=== PATIENT | female | born 1990 | race Hispanic/Latino ===

== ENCOUNTER 2017-09-06 20:31 | Emergency (ER) | payer BC ==
--- NOTE | 2017-09-06 21:06 | ED PDOC ---
Arrival/HPI - General Historian: Patient <Jo Ann Quiroz - Last Filed: 09/06/17 22:01> <Alexis Hamilton - Last Filed: 09/06/17 22:17> - General Chief Complaint: Lower Extremity Problem/Injury Time Seen by Provider: 09/06/17 20:53 - History of Present Illness Narrative History of Present Illness (Text): 09/06/17 20:55 27yr old female presents today with left great toe pain. pt states that 3 days ago her brother in law dropped a heavy tent on her great toe. pt taking motrin for pain with relief. pt c/o pain with ambulation. pt denies numbness, weakness , tingling in the extremity. no lacerations, abrasions. pt refusing medications for pain. no other complaints. (Jo Ann Quiroz) Past Medical History - Provider Review Nursing Documentation Reviewed: Yes - Travel History Have you recently traveled outside [place] w/in the past 3 mons?: No - Tetanus Immunization Tetanus Immunization: Unknown - Psychiatric Hx Psychophysiologic Disorder: No Hx Substance Use: No <Jo Ann Quiroz - Last Filed: 09/06/17 22:01> Family/Social History - Physician Review Nursing Documentation Reviewed: Yes Family/Social History: Unknown Family HX Smoking Status: Never Smoked Hx Alcohol Use: Yes Frequency of alcohol use: Socially Hx Substance Use: No <Jo Ann Quiroz - Last Filed: 09/06/17 22:01> Allergies/Home Meds <Jo Ann Quiroz - Last Filed: 09/06/17 22:01> <Alexis Hamilton - Last Filed: 09/06/17 22:17> Allergies/Adverse Reactions: Allergies No Known Allergies Allergy (Verified 09/06/17 20:33) Home Medications: Home Meds Medication Instructions Recorded Confirmed No Known Home Med 09/06/17 09/06/17 Review of Systems - Review of Systems Constitutional: absent: Fatigue, Fevers Respiratory: absent: SOB, Cough Cardiovascular: absent: Chest Pain, Palpitations Gastrointestinal: absent: Abdominal Pain, Nausea, Vomiting Musculoskeletal: Arthralgias (left great toe pain). absent: Back Pain, Neck Pain Neurological: absent: Headache, Dizziness Psychiatric: absent: Anxiety, Depression <Jo Ann Quiroz - Last Filed: 09/06/17 22:01> Physical Exam Vital Signs Reviewed: Yes Temperature: Afebrile Blood Pressure: Normal Pulse: Regular Respiratory Rate: Normal Appearance: Positive for: Well-Appearing, Non-Toxic, Comfortable Pain Distress: None Mental Status: Positive for: Alert and Oriented X 3 - Systems Exam Head: Present: Atraumatic Mouth: Present: Moist Mucous Membranes Respiratory/Chest: Present: Clear to Auscultation Cardiovascular: Present: Regular Rate and Rhythm Lower Extremity: Present: CALF TENDERNESS, Normal ROM, Tenderness (left foot; + great toe tenderness; no edema, no erythema, no ecchymosis; + ttp over dorsal aspect, no dorsal foot tenderness. full rom of all toes. no erythema. sensation and distal pulses intact; cap refill <2. ), Neurovascularly Intact. No: NORMAL PULSES, Swelling, Erythema, Deformity, Capillary Refill < 2 s Neurological: Present: GCS=15 Skin: Present: Warm, Dry, Normal Color. No: Rashes Psychiatric: Present: Alert, Oriented x 3 <Jo Ann Quiroz - Last Filed: 09/06/17 22:01> Vital Signs Temp Pulse Resp BP Pulse Ox 09/06/17 22:14 98.6 F 86 18 117/69 99 09/06/17 21:47 98.6 F 86 18 117/69 99 09/06/17 20:33 98.3 F 90 16 107/72 99 Medical Decision Making <Jo Ann Quiroz - Last Filed: 09/06/17 22:01> <Alexis Hamilton - Last Filed: 09/06/17 22:17> ED Course and Treatment: 09/06/17 21:08 Patient is nontoxic well-appearing in no distress. vital signs are stable. XRAY GREAT TOE, left; no fracture -reviewed by dr. hamilton. BRADLY TAPE TOE I discussed all results in depth with the patient and advised follow-up with the primary care physician/orthopedist within the next 2 days. I advised immediate return if symptoms worsen or persist or if new concerning symptoms develop. Patient verbalizes understanding of discharge instructions and need for immediate followup. all aspects of this case were discussed the attending of record. IMPRESSION; CONTUSION, TOE Tylenol every 4 hours as needed for pain Follow up with primary care physician within the next 2 days Follow up with the orthopedist within the next 2 days Return if symptoms worsen persist or if new symptoms develop (Jo Ann Quiroz) - RAD Interpretation Radiology Orders: 09/06/17 20:53 FOOT LEFT GREAT TOE ROUTINE [RAD] Stat - PA / GLOBAL TECHNICAL WRITER / Resident Statement OLGA LIDIA has reviewed & agrees with the documentation as recorded. OLGA LIDIA has examined the patient and agrees with the treatment plan. <Alexis Hamilton - Last Filed: 09/06/17 22:17> Disposition/Present on Arrival - Present on Arrival Any Indicators Present on Arrival: No History of DVT/PE: No History of Uncontrolled Diabetes: No Urinary Catheter: No History of Decub. Ulcer: No History Surgical Site Infection Following: None - Disposition Have Diagnosis and Disposition been Completed?: Yes Disposition Time: 21:10 Patient Plan: Discharge <Jo Ann Quiroz - Last Filed: 09/06/17 22:01> <Alexis Hamilton - Last Filed: 09/06/17 22:17> - Disposition Diagnosis: Toe contusion Disposition: HOME/ ROUTINE Patient Problems: Current Active Problems Problem Status Onset Toe contusion Acute Condition: FAIR Discharge Instructions (ExitCare): Toe Injury (DC) Additional Instructions: Tylenol every 4 hours as needed for pain Follow up with primary care physician within the next 2 days Follow up with the orthopedist within the next 2 days Return if symptoms worsen persist or if new symptoms develop Referrals: Anup Moore DPM [Staff Provider] - Follow up with primary Terence Guerra MD [Staff Provider] - Follow up with primary Forms: [employer] (Congolese), WORK NOTE
[2017-09-06 21:48] VITALS: RESP 18
[2017-09-06 21:51] VITALS: BP 117/69; PULSE 86; TEMP 98.6; O2SAT 99
--- NOTE | 2017-09-07 08:08 | RAD ---
PROCEDURE: Left Foot and great toe Radiographs. HISTORY: left great toe pain, dropped tent on toe COMPARISON: None. FINDINGS: BONES: Normal. No fracture. JOINTS: Normal. SOFT TISSUES: Normal. OTHER FINDINGS: None. IMPRESSION: Normal left foot radiographs.
== END 2017-09-06 22:10 | disposition home or self-care (01) ==
LOC: ED 20:31
DX: S90.112A Contusion of left great toe without damage to nail, initial encounter (principal); W22.8XXA Striking against or struck by other objects, initial encounter; Y92.9 Unspecified place or not applicable